=== PATIENT | male | born 2005 | race Caucasian/White ===

== ENCOUNTER 2025-04-16 16:30 | Emergency (ER) | payer BC ==
[~2025-04-16] VITALS: Ht 180.3 cm; Wt 70.9 kg
[2025-04-16 16:32] VITALS: BP 136/83; PULSE 87; RESP 15; TEMP 97.8; O2SAT 98
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
== END 2025-04-16 18:23 | disposition home or self-care (01) ==
LOC: ER 16:32
DX: M79.644 Pain in right finger(s) (principal); V89.2XXA Person injured in unspecified motor-vehicle accident, traffic, initial encounter; Y93.89 Activity, other specified; Y92.89 Other specified places as the place of occurrence of the external cause; Y99.8 Other external cause status
CPT/HCPCS: 29130; 73130; 99283